=== PATIENT | female | born 1990 | race Caucasian/White ===

== ENCOUNTER 2020-01-06 08:56 | Inpatient (IN) ==
[2020-01-06] MEDS ORDERED: OXYTOCIN 30 UNITS/500 ML BAG IV PRN ×2 (09:23)
[2020-01-06] MEDS: LACTATED RINGER'S 1,000 ML IV PRN ×3 (10:06→19:53)
[2020-01-06 10:21] LABS: Hematocrit (blood only) 38.3 % (37-47); Hemoglobin 12.6 g/dL (12.0-16.0); Mean Corpuscular Hemoglobin 30.8 pg (25-34); Mean Corpuscular Hgb Conc 32.9 g/dL (32-36); Mean Corpuscular Volume 93.6 fL (80-100); Mean Platelet Volume 14.1 fL (7.4-10.4); Platelet Count 124 K/uL (130-400); Platelet Estimate Normal (Normal); RDW Coefficient of Variation 13.7 % (11.5-14.5); RDW Standard Deviation 46.9 fL (36.4-46.3); Red Blood Count 4.09 M/uL (4.2-5.4); White Blood Count 8.32 K/uL (4.8-10.8)
--- NOTE | 2020-01-06 11:04 | Labor Progress Brief Note ---
Date of Service January 06, 2020 Subjective IOL for cHTN. Delayed note due to other patient care. This patient was seen and examined at the time of her admission this morning. She was feeling FM, no VB, question of LOF vs leakage from hemphill balloon, and no painful contractions despite fairly active toco. Assessment & Plan (1) Chronic hypertension affecting : IOL due to cHTN. On labetalol, took this morning's dose, BP slightly higher on admission than is typical for her possibly due to excitement / anxiety; plan: will trend (and now at time of this delayed note does look much more typical for her). Admission and Anticipated Discharge Date Admission Date: January 06, 2020 Physical Exam Physical Exam: /hi/firm/post Intact membranes FHT Cat 1 [place] Q3min but not painful to the patient. Results & Data ([facility]) Vital Signs (Past 12 Hours) Vital Signs Temp Pulse Resp BP 01/06/20 10:52 82 147/95 H 01/06/20 10:35 85 137/97 01/06/20 10:30 18 01/06/20 10:20 90 134/94 01/06/20 10:06 90 144/92 H 01/06/20 10:00 18 01/06/20 09:35 89 140/100 01/06/20 09:30 18 01/06/20 09:11 97.5 F L 85 20 156/102 H 01/06/20 09:07 97.5 F L 85 20 156/102 H Coding Level of Care Code None Diagnoses Chronic hypertension affecting O10.919
--- NOTE | 2020-01-06 14:40 | Anesthesiology Consultation ---
Date of Service January 06, 2020 History Height/Weight Height: 5 ft 3 in Weight: 78.925 kg Allergies Allergy/AdvReac Type Severity Reaction Status Date / Time No Known Drug Allergies Allergy Verified 01/03/20 14:51 Medications Home Medications Medication Instructions Recorded Confirmed Last Taken labetalol 100 mg tablet 100 mg PO BID #180 tab 05/07/19 01/05/20 01/05/20 prenat.vits,shahida,ieu-xklw-ghdwk 1 tab PO DAILY 05/31/19 01/05/20 01/05/20 aspirin 81 mg chewable tablet 81 mg PO DAILY 08/06/19 01/05/20 01/05/20 Active Medications Generic Name Dose Route Start Last Admin Trade Name Freq PRN Reason Stop Dose Admin Lactated Ringer's 1,000 mls @ 125 mls/hr 01/06/20 09:23 01/06/20 10:06 Lr IV 01/08/20 09:22 125 mls/hr .Q8H PRN Administration L&D Protocol Protocol Oxytocin 30 units in 500 mls @ 9 mls/hr 01/06/20 09:23 01/06/20 14:22 Pitocin IV 01/08/20 09:22 0.54 units/hr .Q24H PRN 9 mls/hr Labor Induction/Augmentation Titration Protocol 0.54 UNITS/HR Past Medical History Medical History Atypical squamous cells of undetermined significance (ASCUS) on Papanicolaou smear of cervix Chronic hypertension affecting Constipation Encounter for anatomic survey Family history of melanoma History of dysplastic nevus Hx of varicella Hypertension IBS (irritable bowel syndrome) Supervision of normal intrauterine in primigravida Past Family History Family History Grandfather (Paternal) Myocardial infarction Grandfather (Maternal) Myocardial infarction Denies family history of Ovarian cancer Prostate cancer Breast cancer Colorectal cancer Past Surgical History Surgical History H/O oral surgery Social History Smoking Status: Never smoker Hx Alcohol Use: No Hx Substance Use: No Physical Exam Vital Signs Last Vital Signs Temp 36.8 C 01/06/20 12:00 Pulse 89 01/06/20 14:14 Resp 18 01/06/20 14:15 BP 132/94 01/06/20 14:14 Testing Laboratory Results 01/06/20 09:37 12/25 COVID negative
[2020-01-06] MEDS: LABETALOL HCL 100 MG TAB PO SCH (17:23)
--- NOTE | 2020-01-06 18:02 | Labor Progress Brief Note ---
Date of Service January 06, 2020 Subjective Tolerating contractions, uncomfortable but does not wish epidural yet. Assessment & Plan (1) Chronic hypertension affecting : Medically indicated IOL; continue to titrate pit to 200-250 MVU. Continue home oral labetalol dose. Admission and Anticipated Discharge Date Admission Date: January 06, 2020 Physical Exam Physical Exam: FHT Cat 1 [place] Q2-5 with some times of very regular pattern, other times very irregular / spaced apart. Pit @ 15 Cvx 5/50/-2 IUPC Placed after consent process done and patient/FOB agree to placement. No difficulty with passing catheter into uterine cavity, no resistance met. Clear fluid. Results & Data ([facility]) Vital Signs (Past 12 Hours) Vital Signs Temp Pulse Resp BP 01/06/20 17:14 81 139/94 01/06/20 16:14 76 139/95 01/06/20 15:15 76 141/94 H 01/06/20 14:30 18 01/06/20 14:15 18 01/06/20 14:14 89 132/94 01/06/20 13:14 73 144/91 H 01/06/20 13:13 18 01/06/20 12:01 83 141/94 H 01/06/20 12:00 98.2 F 18 01/06/20 11:30 18 01/06/20 11:00 18 01/06/20 10:52 82 147/95 H 01/06/20 10:35 85 137/97 01/06/20 10:30 18 01/06/20 10:20 90 134/94 01/06/20 10:06 90 144/92 H 01/06/20 10:00 18 01/06/20 09:35 89 140/100 01/06/20 09:30 18 01/06/20 09:11 97.5 F L 85 20 156/102 H 01/06/20 09:07 97.5 F L 85 20 156/102 H Coding Level of Care Code None Diagnoses Chronic hypertension affecting O10.919
[2020-01-06] MEDS ORDERED: fentaNYL citrate 100 MCG/2 ML VIAL ONE (19:18)
[2020-01-06] MEDS ORDERED: SODIUM CHLORIDE 0.9% INJ 10 ML VIAL ONE (19:18)
[2020-01-06] MEDS ORDERED: ePHEDrine sulfate 50 MG/ML AMP ONE (19:18)
[2020-01-06] MEDS ORDERED: BUPIVACAINE 0.25% 30 ML VIAL ONE (19:18)
[2020-01-06] MEDS ORDERED: fentaNYL 2MCG/ML ROPIVACAINE 1.25MG/ML 100 ML BAG EPI ONE (19:19)
[2020-01-06] MEDS ORDERED: ePHEDrine sulfate 50 MG/ML AMP IV PRN (20:04)
[2020-01-06] MEDS ORDERED: fentaNYL 2MCG/ML ROPIVACAINE 1.25MG/ML 100 ML BAG EPI PRN (20:04)
[2020-01-06] MEDS ORDERED: ONDANSETRON INJ 2 MG/ML 2 ML VIAL IV PRN (20:04)
[2020-01-06] MEDS ORDERED: NALOXONE HCL 0.4 MG/1 ML VIAL/CARP IV PRN (20:04)
--- NOTE | 2020-01-06 22:21 | Labor Progress Brief Note ---
Date of Service January 06, 2020 Subjective Comfortable with epidural Assessment & Plan (1) Chronic hypertension affecting : Medically indicated IOL. Pitocin at 17 with adequate MVU and cervical change occurring. Continue current management. Admission and Anticipated Discharge Date Admission Date: January 06, 2020 Physical Exam Physical Exam: /-1, big change in effacement and station. FHT Cat 1 [place] Q2 Pit @ 17 MVU adequate Results & Data ([facility]) Vital Signs (Past 12 Hours) Vital Signs Temp Pulse Resp BP Pulse Ox 01/06/20 22:18 80 129/83 96 01/06/20 22:13 86 95 01/06/20 22:08 88 96 01/06/20 22:03 80 139/88 96 01/06/20 22:00 18 01/06/20 21:58 84 96 01/06/20 21:53 87 97 01/06/20 21:48 99 H 96 01/06/20 21:47 85 136/90 01/06/20 21:43 89 96 01/06/20 21:38 83 97 01/06/20 21:33 99 H 136/83 94 01/06/20 21:31 106 H 90 01/06/20 21:30 98.2 F 18 01/06/20 21:28 88 98 01/06/20 21:23 84 97 01/06/20 21:22 71 94 01/06/20 21:19 69 121/68 01/06/20 21:18 70 95 01/06/20 21:13 70 95 01/06/20 21:08 71 96 01/06/20 21:03 70 95 01/06/20 21:02 69 130/80 01/06/20 21:00 18 01/06/20 20:58 73 96 01/06/20 20:53 68 95 01/06/20 20:48 68 128/77 96 01/06/20 20:46 74 94 01/06/20 20:43 78 97 01/06/20 20:38 83 97 01/06/20 20:33 79 97 01/06/20 20:30 73 137/82 01/06/20 20:29 85 94 01/06/20 20:28 86 96 01/06/20 20:24 75 135/88 01/06/20 20:23 73 97 01/06/20 20:19 71 131/85 01/06/20 20:18 77 97 01/06/20 20:15 74 18 135/81 01/06/20 20:14 75 130/82 01/06/20 20:13 75 18 97 01/06/20 20:11 18 01/06/20 20:09 71 18 142/83 H 01/06/20 20:08 75 97 01/06/20 20:07 74 18 136/75 01/06/20 20:05 76 18 133/80 01/06/20 20:03 72 136/78 96 01/06/20 20:01 88 142/93 H 01/06/20 19:59 88 132/88 01/06/20 19:58 81 96 01/06/20 19:53 89 97 01/06/20 19:48 91 H 97 01/06/20 19:43 79 98 01/06/20 19:38 79 98 01/06/20 19:33 77 97 01/06/20 19:28 81 97 01/06/20 19:23 83 96 01/06/20 19:14 98.2 F 73 18 142/94 H 01/06/20 19:07 98.2 F 18 01/06/20 18:30 98.8 F 18 01/06/20 18:14 80 144/94 H 01/06/20 17:14 81 139/94 01/06/20 16:14 76 139/95 01/06/20 15:15 76 141/94 H 01/06/20 14:30 18 01/06/20 14:15 18 01/06/20 14:14 89 132/94 01/06/20 13:14 73 144/91 H 01/06/20 13:13 18 01/06/20 12:01 83 141/94 H 01/06/20 12:00 98.2 F 18 01/06/20 11:30 18 01/06/20 11:00 18 01/06/20 10:52 82 147/95 H 01/06/20 10:35 85 137/97 01/06/20 10:30 18 Coding Level of Care Code None Diagnoses Chronic hypertension affecting O10.919
[2020-01-07] MEDS: LACTATED RINGER'S 1,000 ML IV PRN (03:36)
--- NOTE | 2020-01-07 06:33 | Delivery Summary ---
Vaginal Delivery Summary Date of Service January 07, 2020 Vaginal Delivery Summary DIAGNOSES: 1. [place] intrauterine at 38w3d gestation. 2. Induction of labor due to chronic hypertension managed on labetalol. 3. Group B Streptococcus Neg. PROCEDURE: Spontaneous vaginal delivery and repair of second degree laceration. SURGEON: Lin Argueta MD. SAFETY MANAGER: None. ESTIMATED BLOOD LOSS: 300 mL. COMPLICATIONS: None. PLACENTA: Spontaneous and intact with a 3-vessel cord. DISPOSITION: Stable to labor and delivery. DESCRIPTION: The patient pushed well and brought the head to in JUDY position. The 's head was allowed to deliver with contraction force and no further active pushing, with the perineum protected during this time. The shoulders delivered easily with a maternal pushing effort. There was a fairly tight nuchal cord which was just able to be reduced at the perineum. The right shoulder was anterior. The shoulders and body delivered without any difficulty, and the was placed on the maternal abdomen. It was vigorous and moving all extremities, and making respiratory efforts. The cord was doubly clamped by the MD and then cut by the FOB. The placenta delivered spontaneously and was noted to be intact and with a 3VC. The cervix, vagina and perineum were examined and were found to have a second degree laceration, which was repaired using vicryl suture including a crown stitch to rebuild the perineal body, and an over-layer of 3-0 vicryl to reapproximate the edges where they tore in a particularly ragged line along the R labium majus and perineum, in an attempt to maximize cosmesis upon healing. The fundus was firm and lochia minimal immediately after delivery. [facility] Vaginal Delivery Charge Vaginal Delivery Codes: 30382 global code for the antepartum, delivery, and post-
[2020-01-07] MEDS ORDERED: oxyCODONE/ACETAMINOPHEN 5mg/325mg TAB PO PRN (06:40)
[2020-01-07] MEDS ORDERED: ACETAMINOPHEN 325 MG TAB PO PRN (06:40)
[2020-01-07] MEDS ORDERED: HYDROCORTISONE ACETATE 25 MG SUPP PR PRN (06:40)
[2020-01-07] MEDS ORDERED: BENZOCAINE 20% AER SPR 82.5 GM CAN EXT PRN (06:40)
[2020-01-07] MEDS ORDERED: DIPHTHERIA/TETANUS/PERTUSSIS 0.5 ML SYR/VIAL IM ONE (06:40)
[2020-01-07] MEDS ORDERED: SUPERCREAM 0.870% 15 GM JAR EXT PRN (06:40)
--- NOTE | 2020-01-07 07:08 | Anesthesiology Progress Note ---
Date of Service January 07, 2020 Anesthesia Post Procedure Vital Signs Vital Signs: Temp Pulse Resp BP Pulse Ox 01/07/20 07:00 89 18 144/90 H 01/07/20 06:58 89 144/90 H 01/07/20 06:44 82 18 148/91 H 01/07/20 06:43 82 148/91 H 01/07/20 06:30 96 H 20 146/87 H 01/07/20 06:28 96 H 146/87 H 01/07/20 06:23 96 H 95 01/07/20 06:18 110 H 95 01/07/20 06:17 100 H 120/58 L 01/07/20 06:13 104 H 94 01/07/20 06:08 103 H 93 01/07/20 06:03 123 H 96 01/07/20 06:02 90 148/84 H 01/07/20 05:58 95 H 93 01/07/20 05:53 103 H 95 01/07/20 05:48 118 H 94 01/07/20 05:47 98 H 156/92 H 01/07/20 05:45 20 01/07/20 05:43 115 H 94 01/07/20 05:38 105 H 95 01/07/20 05:33 92 H 147/87 H 96 01/07/20 05:30 36.9 C 01/07/20 05:29 20 01/07/20 05:28 95 H 93 01/07/20 05:23 91 H 95 01/07/20 05:18 87 95 01/07/20 05:17 94 H 132/75 01/07/20 05:13 83 96 01/07/20 05:08 93 H 93 01/07/20 05:03 91 H 95 01/07/20 05:02 86 138/78 01/07/20 05:00 20 01/07/20 04:58 92 H 97 01/07/20 04:53 82 96 01/07/20 04:48 97 H 130/75 96 01/07/20 04:43 87 94 01/07/20 04:38 88 91 01/07/20 04:33 89 132/69 93 01/07/20 04:30 20 01/07/20 04:28 92 H 95 01/07/20 04:23 89 95 01/07/20 04:18 83 96 01/07/20 04:17 76 146/86 H 01/07/20 04:13 94 H 95 01/07/20 04:08 85 95 01/07/20 04:03 86 95 01/07/20 04:02 83 148/87 H 01/07/20 04:00 20 01/07/20 03:58 80 92 20 03:53 80 92 01/07/20 03:48 78 140/78 92 01/07/20 03:43 77 93 01/07/20 03:38 81 94 20 03:33 85 93 01/07/20 03:32 80 142/84 H 01/07/20 03:30 37.0 C 18 01/07/20 03:28 82 95 01/07/20 03:23 84 95 01/07/20 03:19 82 140/81 01/07/20 03:18 82 96 01/07/20 03:13 81 95 01/07/20 03:08 84 95 01/07/20 03:03 80 95 01/07/20 03:02 79 141/86 H 01/07/20 02:58 93 H 94 01/07/20 02:53 78 93 01/07/20 02:48 83 147/85 H 94 01/07/20 02:43 89 96 01/07/20 02:38 87 95 01/07/20 02:33 87 94 01/07/20 02:32 80 140/82 01/07/20 02:30 36.7 C 01/07/20 02:29 20 01/07/20 02:28 84 93 01/07/20 02:23 81 94 20 02:19 83 136/79 01/07/20 02:18 92 H 94 01/07/20 02:13 87 95 01/07/20 02:08 89 95 01/07/20 02:03 87 138/89 96 01/07/20 02:00 20 01/07/20 01:58 85 94 20 01:53 91 H 95 20 01:48 85 95 20 01:47 89 135/79 20 01:43 83 95 20 01:38 96 H 96 01/07/20 01:33 92 H 96 01/07/20 01:32 82 142/81 H 01/07/20 01:29 20 01/07/20 01:28 89 93 01/07/20 01:23 84 94 01/07/20 01:18 87 140/84 93 01/07/20 01:13 89 93 01/07/20 01:08 85 94 01/07/20 01:03 36.9 C 88 130/71 94 01/07/20 01:00 20 01/07/20 00:58 84 93 01/07/20 00:53 81 92 01/07/20 00:48 89 134/77 93 01/07/20 00:43 80 94 01/07/20 00:38 84 92 01/07/20 00:33 84 92 01/07/20 00:32 80 132/72 01/07/20 00:30 20 01/07/20 00:28 84 93 01/07/20 00:23 80 94 01/07/20 00:18 84 93 01/07/20 00:17 81 130/77 01/07/20 00:13 84 93 01/07/20 00:08 85 94 01/07/20 00:05 84 124/78 01/07/20 00:03 105 H 95 01/06/20 23:59 20 01/06/20 23:58 79 93 01/06/20 23:53 78 93 01/06/20 23:49 77 140/74 01/06/20 23:48 78 93 01/06/20 23:43 82 93 01/06/20 23:38 82 95 01/06/20 23:33 77 93 01/06/20 23:32 75 152/72 H 01/06/20 23:28 76 93 01/06/20 23:23 79 93 01/06/20 23:18 79 125/76 94 01/06/20 23:13 80 95 01/06/20 23:08 76 94 01/06/20 23:03 78 136/76 95 01/06/20 22:58 80 94 01/06/20 22:53 81 95 01/06/20 22:50 36.9 C 81 20 134/81 95 01/06/20 22:48 81 134/81 95 01/06/20 22:43 82 96 11/16/20 22:38 81 96 01/06/20 22:33 84 133/78 96 01/06/20 22:30 18 01/06/20 22:28 82 95 01/06/20 22:23 81 95 01/06/20 22:18 80 129/83 96 01/06/20 22:13 86 95 01/06/20 22:08 88 96 01/06/20 22:03 80 139/88 96 01/06/20 22:00 18 01/06/20 21:58 84 96 01/06/20 21:53 87 97 01/06/20 21:48 99 H 96 01/06/20 21:47 85 136/90 01/06/20 21:43 89 96 01/06/20 21:38 83 97 01/06/20 21:33 99 H 136/83 94 01/06/20 21:31 106 H 90 01/06/20 21:30 36.8 C 18 01/06/20 21:28 88 98 01/06/20 21:23 84 97 01/06/20 21:22 71 94 01/06/20 21:19 69 121/68 01/06/20 21:18 70 95 01/06/20 21:13 70 95 01/06/20 21:08 71 96 01/06/20 21:03 70 95 01/06/20 21:02 69 130/80 01/06/20 21:00 18 01/06/20 20:58 73 96 01/06/20 20:53 68 95 01/06/20 20:48 68 128/77 96 01/06/20 20:46 74 94 01/06/20 20:43 78 97 01/06/20 20:38 83 97 01/06/20 20:33 79 97 01/06/20 20:30 73 137/82 01/06/20 20:29 85 94 01/06/20 20:28 86 96 01/06/20 20:24 75 135/88 01/06/20 20:23 73 97 01/06/20 20:19 71 131/85 01/06/20 20:18 77 97 01/06/20 20:15 74 18 135/81 01/06/20 20:14 75 130/82 01/06/20 20:13 75 18 97 01/06/20 20:11 18 01/06/20 20:09 71 18 142/83 H 01/06/20 20:08 75 97 01/06/20 20:07 74 18 136/75 01/06/20 20:05 76 18 133/80 01/06/20 20:03 72 136/78 96 01/06/20 20:01 88 142/93 H 01/06/20 19:59 88 132/88 01/06/20 19:58 81 96 01/06/20 19:53 89 97 01/06/20 19:48 91 H 97 01/06/20 19:43 79 98 01/06/20 19:38 79 98 01/06/20 19:33 77 97 01/06/20 19:28 81 97 01/06/20 19:23 83 96 01/06/20 19:14 36.8 C 73 18 142/94 H 01/06/20 19:07 36.8 C 18 01/06/20 18:30 37.1 C 18 01/06/20 18:14 80 144/94 H 01/06/20 17:14 81 139/94 01/06/20 16:14 76 139/95 01/06/20 15:15 76 141/94 H 01/06/20 14:30 18 01/06/20 14:15 18 01/06/20 14:14 89 132/94 01/06/20 13:14 73 144/91 H 01/06/20 13:13 18 01/06/20 12:01 83 141/94 H 01/06/20 12:00 36.8 C 18 01/06/20 11:30 18 01/06/20 11:00 18 01/06/20 10:52 82 147/95 H 01/06/20 10:35 85 137/97 01/06/20 10:30 18 01/06/20 10:20 90 134/94 01/06/20 10:06 90 144/92 H 01/06/20 10:00 18 01/06/20 09:35 89 140/100 01/06/20 09:30 18 01/06/20 09:11 36.4 C L 85 20 156/102 H 01/06/20 09:07 36.4 C L 85 20 156/102 H Pain Intensity Back: Pain Intensity: 0 Transfer of Care Handoff Completed per policy Notes Mental Status: alert / awake / arousable and participated in evaluation Patient Amnestic to Procedure: Yes Nausea / Vomiting: adequately controlled Pain: adequately controlled Airway Patency, RR, SpO2: stable & adequate BP & HR: stable & adequate Hydration State: stable & adequate Anesthetic Complications: no major complications apparent and Pt Satisfied with anesthetic care
[2020-01-07] MEDS: IBUPROFEN 600 MG TAB PO PRN ×2 (08:26→19:54)
[2020-01-07] MEDS: LABETALOL HCL 100 MG TAB PO SCH ×2 (09:13→20:11)
[2020-01-07] MEDS: DOCUSATE SODIUM 100 MG CAP PO SCH ×2 (10:15→19:54)
[2020-01-07] MEDS: PRENATAL VITAMIN 1 TAB PO SCH (10:15)
[2020-01-08] MEDS: IBUPROFEN 600 MG TAB PO PRN ×3 (01:16→18:55)
--- NOTE | 2020-01-08 07:18 | Obstetrical Progress Note ---
Date of Service January 08, 2020 Assessment & Plan (1) exam: doing well, routine care. voiding well, will monitor and let us know if concerns Day #:: 1 Subjective Ambulation: ambulating normally Voiding: no voiding problems (did have straight cath last night but since voided spont and felt she emptied well) Diet Tolerance:: regular diet Lochia:: Small Feeding Type:: breast feeding no pain issues. doing well. Physical Exam Constitutional WD/WN, vitals as above Respiratory normal respiratory effort, lungs clear to auscultation Cardiovascular Rate/Rhythm: regular rate and regular rhythm Gastrointestinal (Abdomen) Inspection/Auscultation: abdomen normal to inspection Percussion/Palpation: abdomen soft Fundus firm 1cm down Musculoskeletal nt calves Neurologic grossly normal Psychiatric A+Ox3, euthymic affect Results & Data ([facility]) Vital Signs (Past 12 Hours) Vital Signs Temp Pulse Resp BP Pulse Ox 01/08/20 04:30 97.5 F L 86 16 138/91 97 01/07/20 22:50 97.5 F L 81 16 137/86 97 01/07/20 19:55 97.5 F L 98 H 18 138/88 96
[2020-01-08 07:23] LABS: Hematocrit (blood only) 31.9 % (37-47); Hemoglobin 10.6 g/dL (12.0-16.0); Mean Corpuscular Hemoglobin 30.8 pg (25-34); Mean Corpuscular Hgb Conc 33.2 g/dL (32-36); Mean Corpuscular Volume 92.7 fL (80-100); RDW Coefficient of Variation 13.6 % (11.5-14.5); Red Blood Count 3.44 M/uL (4.2-5.4); White Blood Count 9.96 K/uL (4.8-10.8)
[2020-01-08 07:34] LABS: Platelet Count 92 K/uL (130-400)
[2020-01-08] MEDS: DOCUSATE SODIUM 100 MG CAP PO SCH ×2 (08:33→21:22)
[2020-01-08] MEDS: PRENATAL VITAMIN 1 TAB PO SCH (08:33)
[2020-01-08] MEDS: LABETALOL HCL 100 MG TAB PO SCH ×2 (08:44→21:22)
[2020-01-09 06:05] LABS: Hematocrit (blood only) 32.3 % (37-47); Hemoglobin 10.6 g/dL (12.0-16.0)
--- NOTE | 2020-01-09 06:30 | Obstetrical Progress Note ---
Date of Service <Jc Villarreal MD - Last Filed: 01/09/20 06:29> January 09, 2020 Assessment & Plan <Jc Villarreal MD - Last Filed: 01/09/20 06:29> (1) exam: Vero is a 30 y/o female who is now PPD #1 following medically-indic ated IOL for cHTN with subsequent at 38-3/7 weeks - Feels well today. Eating well, voiding well, ambulating well. - Pain well controlled with ibuprofen 600mg Q4H PRN. - Routine PPD care -- continue regular OOB and ambulation - cHTN: BPs well controlled here -- throughout last night, 130/80. Continue home labetolol 100mg PO b.i.d. upon d/c - Anticipate d/c today - After discharge will have [address] Argueta (2) Chronic hypertension affecting : Subjective <Jc Villarreal MD - Last Filed: 01/09/20 06:29> Vero is a 30 y/o female who is now PPD #1 following medically-indicated IOL for cHTN with subsequent at 38-3/7 weeks. Reports feeling well overall this morning. Minimal abdominal cramping with pain well managed on analgesics. Voiding without difficulty. Tolerating meals well and able to ambulate some. Endorses passing gas but not yet bowel movements. Some persistent lochia with some improvement this morning. Breast feeding without difficulty BPs stable in the 130/80 range overnight. No QIU/changes in vision/CP/SOB/abdominal pain. Review of Systems Denies fever, chills, sweats Denies shortness of breath, difficulty breathing, chest pain, palpitations, chest pressure. Denies breast pain. Denies dysuria. Denies headache or changes in vision. Physical Exam <Jc Villarreal MD - Last Filed: 01/09/20 06:29> General: Alert, oriented. No acute distress. Cardiac: Regular rate and rhythm, no murmurs/rubs/gallops. Respiratory: Clear to auscultation bilaterally a/p, no wheezes/rales/rhonchi. No increased work of breathing. Symmetrical chest rise. No respiratory distress. Abdomen: Soft, nontender, nondistended. Bowel sounds present. Uterus: Uterine fundus firm, palpable 2 cm below umbilicus. Lower Extremities: No lower extremity edema or swelling. No deep calf pain. Elyse's negative bilaterally. Results & Data ([facility]) <Jc Villarreal MD - Last Filed: 01/09/20 06:29> Vital Signs (Past 12 Hours) Vital Signs Temp Pulse Resp BP Pulse Ox 01/09/20 00:25 36.7 C 73 18 132/83 97 01/08/20 21:20 90 138/87 01/08/20 19:40 36.7 C 90 18 138/87 97 <Letitia Cesar DO - Last Filed: 01/09/20 07:38> Co-Signing Physician Notes Resident Physician Supervision Note: I was present with Dr. Villarreal during the history and exam. I discussed the case with the resident and agree with the findings and plan as documented in the note. Any exceptions or clarifications are listed here: PPD#2 doing well. DC home today, instructions reviewed. Continue labetalol 100mg BID, f/u office 1w for recheck. Documented By: Letitia Cesar DO Resident Activity Tracking <Jc Villarreal MD - Last Filed: 01/09/20 06:29> Resident Involvement: Resident Care Provided Care Provided: Adult Hospital Medicine and OB Delivery
[2020-01-09] MEDS: PRENATAL VITAMIN 1 TAB PO SCH (07:44)
[2020-01-09] MEDS: DOCUSATE SODIUM 100 MG CAP PO SCH (07:44)
[2020-01-09] MEDS: LABETALOL HCL 100 MG TAB PO SCH (07:44)
== END 2020-01-09 12:30 | disposition home or self-care (01) | DRG 807 ==
LOC: 4S1 08:56 → 4N 01-07 10:00

== ENCOUNTER 2023-04-03 07:35 | Inpatient (IN) ==
[2023-04-03] MEDS ORDERED: LIDOCAINE 1% LOCAL 20 ML VIAL INFIL PRN (07:42)
--- NOTE | 2023-04-03 07:48 | History & Physical Report ---
Date of Service April 03, 2023 Assessment & Plan (1) Encounter for induction of labor: (2) Need for MMR vaccine: (3) Hypertension: Plan 33-year-old G2, P1 currently at 38 weeks gestational age here for induction Fetus: Category 1 tracing Labor: Will continue to monitor and augment if needed. GBS: Positive, treat in labor Epidural if requested Rubella equivocal, will need MMR Vitals: Within normal limits Admission and Anticipated Discharge Date Admission Date: April 03, 2023 History of Present Illness Primary Care Provider: Diana Valentin MD 33 y/o female at 39 weeks of gestation. Here for induction. Complications with the include CHTN on labetalol. Has been attending OB appointments regularly. Taking vitamin and labetalol. GBS+. Rubella equivocal. Contractions: every 10-15 min Fluid or blood loss: none movement: active Labs Lab Results OB Labs: Blood Type O Positive 09/13/22 Antibody Screen NEGATIVE 09/13/22 Hemoglobin 11.9 g/dl (12.0-16.0) L 01/26/23 Hematocrit 36.5 % (37.0-47.0) L 01/26/23 Mean Corpuscular Volume 90.0 fL (80.0-100.0) 09/13/22 Platelet Count 221 K/uL (130-400) 09/13/22 Rubella IgG Antibody Equivocal (Immune) L 09/13/22 Rapid Plasma Reagin Nonreactive (Nonreactive) 09/13/22 Hepatitis B Surface Antigen Neg (Neg) 06/11/19 Hepatitis B Surface Antigen. NON-REACTIVE (NON-REACTIVE) 09/13/22 Hepatitis C Antibody (EIA) NON-REACTIVE (NON-REACTIVE) 09/13/22 HIV (1&2) Ab and P24 Ag, 4th Gener Neg (Neg) 06/11/19 HIV (1&2) Ag and Ab Confirmation NON-REACTIVE (NON-REACTIVE) 09/13/22 Glucose 1 Hour 50 gm Load 120 mg/dl (70-130) 01/26/23 OB Optional Labs: Chlamydia trachomatis RNA Not Detected (NotDetected) 09/13/22 Neisseria gonorrhoeae RNA Not Detected (NotDetected) 09/13/22 Thyroid Stimulating Hormone (TSH) 2.055 uIu/ml (0.300-4.500) 06/24/22 Labs Reviewed: Declines genetics--mln Allergies Allergy/AdvReac Type Severity Reaction Status Date / Time No Known Drug Allergies Allergy Verified 03/31/23 15:22 Home Medications Medication Instructions Recorded Confirmed Type prenat.vits,shahida,akb-ddxg-siits 1 tab PO DAILY 05/31/19 04/03/23 History cholecalciferol (vitamin D3) 50 50 mcg PO DAILY #90 caps 03/14/22 04/03/23 Rx mcg (2,000 unit) capsule labetalol 100 mg tablet 100 mg PO BID #180 tabs 11/08/22 04/03/23 Rx aspirin 81 mg chewable tablet 81 mg PO DAILY 04/02/23 04/03/23 History Patient History Medical History (Updated 04/03/23 @ 08:14 by Shabbir Bhardwaj MD) Anemia Supervision of high risk , antepartum Atypical squamous cells of undetermined significance (ASCUS) on Papanicolaou smear of cervix Hx of varicella Family history of melanoma History of dysplastic nevus Constipation IBS (irritable bowel syndrome) Surgical History H/O oral surgery Family History Grandfather (Paternal) Myocardial infarction Grandfather (Maternal) Myocardial infarction Denies family history of Ovarian cancer Prostate cancer Breast cancer Colorectal cancer Social History (Updated 09/07/22 @ 15:09 by Dania Cunningham) Smoking Status: Never smoker Second Hand Exposure: No; Do You Dip or Chew Tobacco: No; Hx Alcohol Use: No Hx Substance Use: No Preferred Language: Czech Communication Ability: Effective Visual Impairment: No Limitations Hearing Ability: Normal Clip On Sunglasses Inspector Required: No Beliefs That Will Affect Care: None marital status: marital status details: Justin Dumont ([phone] Current Living Situation: Family Current Living Situation Comment: Lives at home with and 3 year old daughter Mo. 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 Skin: warm, dry, intact HEENT: NC/AT, anicteric sclera, conjunctiva without injection, moist mucus membranes Heart: +S1/S2, regular, no m/r/g Lungs: equal air entry bilaterally, no rales/rhonchi/wheezes Abd: +BS, soft, NT/ND, gravid uterus Cervical:, uterus mod. anterior Ext: warm, no clubbing/cyanosis or edema Neuro: nonfocal, patient AA&O x 4, speech intact, no facial droop, moving all extremities on command. Results & Data Vital Signs (Past 12 Hours) Vital Signs Pulse BP 04/03/23 07:45 97 H 150/89 H Supervising Physician Co-Signing Physician Notes Resident Physician Supervision Note: I interviewed and examined the patient. Discussed with Dr. Bhardwaj and agree with findings and plan as documented in the note. Any exceptions or clarifications are listed here: 33 yo at 38 3/7 wga presents for IOL chTN on meds. +FM; denies ctx, LOF, VB. PNI: chtn on albetalol 100mg po bid, GBS+, rub equiv. SVE 1/50/-2, 35cc hemphill placed and pt toelrated well. Will start pit. GBS+, pcn started. Epidural prn Documented By: Jayleen Nathan MD Resident Activity Tracking Resident Involvement: Resident Care Provided Care Provided: OB Delivery
[2023-04-03 08:26] LABS: Hematocrit (blood only) 36.3 % (37.0-47.0); Mean Corpuscular Hemoglobin 30.5 pg (25.0-34.0); Mean Corpuscular Hgb Conc 33.1 g/dL (32.0-36.0); Mean Corpuscular Volume 92.1 fL (80.0-100.0); Mean Platelet Volume 13.1 fL (9.4-12.4); Platelet Count 117 K/uL (130-400); RDW Coefficient of Variation 13.1 % (11.5-14.5); Red Blood Count 3.94 M/uL (4.20-5.40); White Blood Count 7.11 K/ul (4.8-10.8)
[2023-04-03] MEDS: LACTATED RINGER'S 1,000 ML IV PRN (09:08)
[2023-04-03] MEDS: PENICILLIN GK 6 MU in DEXTROSE 5% 250 ML IV STA (09:10)
[2023-04-03] MEDS: OXYTOCIN 30 UNITS/NSS 30 UNITS/500 ML BAG IV PRN (09:38)
[2023-04-03] MEDS: PENICILLIN GK 3 MU in DEXTROSE 5% 100 ML IV PRN (15:05)
--- NOTE | 2023-04-03 16:52 | Labor Progress Brief Note ---
Date of Service April 03, 2023 Subjective hemphill bulb out Assessment & Plan (1) Chronic hypertension affecting : (2) Encounter for induction of labor: Plan 33 yo at 38 3/7 wga presents for IOL cHTN on meds VSS Fetus cat 1 Labor - pit at 10, now s/p arom cHTN - labetalol 100mg po bid ordered GBS+, pcn ordered epidural prn Admission and Anticipated Discharge Date Admission Date: April 03, 2023 Physical Exam Genitourinary: Manual OB Exam: + cervical dilation 4 cm, + cervical effacement 50%, + station -2 and + amniotic fluid (arom clear) OB Exam Monitor Tracing: + external FHT monitor used, + external uterine monitor used (q4) and + category I (135/mod/+accel/-decel) Results & Data Vital Signs (Past 12 Hours) Vital Signs Temp Pulse Resp BP 04/03/23 16:48 82 04/03/23 16:48 161/83 H 04/03/23 15:47 85 04/03/23 15:47 142/78 H 04/03/23 14:43 81 04/03/23 14:43 136/76 04/03/23 13:43 86 04/03/23 13:43 136/84 04/03/23 12:43 86 04/03/23 12:43 128/83 04/03/23 11:43 84 04/03/23 11:43 134/81 04/03/23 11:10 16 04/03/23 11:10 98.6 F 16 04/03/23 10:43 79 04/03/23 10:43 146/80 H 04/03/23 09:42 82 04/03/23 09:42 137/87 04/03/23 08:35 96 H 04/03/23 08:35 131/86 04/03/23 08:20 95 H 04/03/23 08:20 143/85 H 04/03/23 08:05 91 H 04/03/23 08:05 141/85 H 04/03/23 07:45 98.2 F 97 H 18 150/89 H Coding Level of Care Code None Diagnoses Chronic hypertension affecting O10.919 Encounter for induction of labor Z34.90
[2023-04-03] MEDS: LABETALOL HCL 100 MG TAB PO SCH (17:56)
--- NOTE | 2023-04-03 19:51 | Labor Progress Brief Note ---
Date of Service April 03, 2023 Subjective ctx worsening Assessment & Plan (1) Chronic hypertension affecting : (2) Encounter for induction of labor: Plan 33 yo at 38 3/7 wga presents for IOL cHTN on meds VSS Fetus cat 1 Labor - pit at 16, slight change. continue induction cHTN - labetalol 100mg po bid ordered GBS+, pcn ordered epidural prn Admission and Anticipated Discharge Date Admission Date: April 03, 2023 Physical Exam Genitourinary: Manual OB Exam: + cervical dilation 5 cm, + cervical effacement 60% and + station -2 OB Exam Monitor Tracing: + external FHT monitor used, + external uterine monitor used (q2-4) and + category I (135/mod/+accel/-decel) Results & Data Vital Signs (Past 12 Hours) Vital Signs Temp Pulse Resp BP 04/03/23 19:44 88 04/03/23 19:44 135/83 04/03/23 19:15 87 04/03/23 19:15 140/90 04/03/23 18:20 84 04/03/23 18:20 138/91 04/03/23 18:04 91 H 04/03/23 18:04 128/91 04/03/23 17:48 96 H 04/03/23 17:48 138/95 04/03/23 17:33 88 04/03/23 17:33 140/85 04/03/23 17:19 83 04/03/23 17:19 145/88 H 04/03/23 17:04 81 04/03/23 17:04 158/91 H 04/03/23 16:48 82 04/03/23 16:48 161/83 H 04/03/23 15:47 85 04/03/23 15:47 142/78 H 04/03/23 14:43 81 04/03/23 14:43 136/76 04/03/23 13:43 86 04/03/23 13:43 136/84 04/03/23 12:43 86 04/03/23 12:43 128/83 04/03/23 11:43 84 04/03/23 11:43 134/81 04/03/23 11:10 16 04/03/23 11:10 98.6 F 16 04/03/23 10:43 79 04/03/23 10:43 146/80 H 04/03/23 09:42 82 04/03/23 09:42 137/87 04/03/23 08:35 96 H 04/03/23 08:35 131/86 04/03/23 08:20 95 H 04/03/23 08:20 143/85 H 04/03/23 08:05 91 H 04/03/23 08:05 141/85 H Coding Level of Care Code None Diagnoses Chronic hypertension affecting O10.919 Encounter for induction of labor Z34.90
--- NOTE | 2023-04-03 20:17 | Anesthesiology Consultation ---
Date of Service April 03, 2023 Assessment & Plan ASA ASA2 Proposed Anesthesia Anesthesia Type: Labor Epidural Risk / Benefits Reviewed With: PT / POA / Parent / Guardian, Accepts Plan and Informed Consent Obtained History Height/Weight Height: 5 ft 3 in Weight: 77.111 kg Allergies Allergy/AdvReac Type Severity Reaction Status Date / Time No Known Drug Allergies Allergy Verified 03/31/23 15:22 Medications Home Medications Medication Instructions Recorded Confirmed Last Taken prenat.vits,shahida,wwy-wqzg-uitvu 1 tab PO DAILY 05/31/19 04/03/23 04/02/23 cholecalciferol (vitamin D3) 50 50 mcg PO DAILY #90 caps 03/14/22 04/03/23 04/02/23 mcg (2,000 unit) capsule labetalol 100 mg tablet 100 mg PO BID #180 tabs 11/08/22 04/03/23 04/03/23 05:30 aspirin 81 mg chewable tablet 81 mg PO DAILY 04/02/23 04/03/23 04/03/23 Active Medications Generic Name Dose Route Start Last Admin Trade Name Freq PRN Reason Stop Dose Admin Oxytocin 30 units in 500 mls @ 16 mls/hr 04/03/23 07:42 04/03/23 19:36 Pitocin 30 Units/Nss IV 04/05/23 07:41 0.96 units/hr .Q24H PRN 16 mls/hr Labor Induction/Augmentation Titration Protocol 0.96 UNITS/HR Lactated Ringer's 1,000 mls @ 125 mls/hr 04/03/23 07:42 04/03/23 20:30 Lr IV 04/05/23 07:41 Infused .Q8H PRN Infusion L&D Protocol Protocol Penicillin G Potassium 3 mu/ 106 mls @ 100 mls/hr 04/03/23 10:43 04/03/23 19:13 Dextrose IV 04/13/23 10:42 100 mls/hr Q4H PRN Administration GBS(+) Until Delivery Labetalol HCl 100 mg 04/03/23 16:50 04/03/23 17:56 Labetalol Hcl 100 Mg Tab PO 05/03/23 16:49 100 mg Q12 LEONARDO Administration Past Medical History Medical History (Updated 04/03/23 @ 08:14 by Shabbir Bhardwaj MD) Anemia Supervision of high risk , antepartum Atypical squamous cells of undetermined significance (ASCUS) on Papanicolaou smear of cervix Hx of varicella Family history of melanoma History of dysplastic nevus Constipation IBS (irritable bowel syndrome) Exercise / Class Metabolic Activity II 4-5 Yardwork/Stairs/Walk up hill Past Family History Family History Grandfather (Paternal) Myocardial infarction Grandfather (Maternal) Myocardial infarction Denies family history of Ovarian cancer Prostate cancer Breast cancer Colorectal cancer Past Surgical History Surgical History H/O oral surgery Past Anesthesia History No Hx of Anesthesia Complications and No Family Hx of Anesthesia Complications History of PONV No Hx of PONV and No Hx of Motion Sickness Social History Smoking Status: Never smoker Do You Dip or Chew Tobacco: No Hx Alcohol Use: No Hx Substance Use: No Review of Systems denies fever/cough/ colds/ chest pain/ SOB/ NOA denies NOA Physical Exam Vital Signs Last Vital Signs Temp 37.0 C 04/03/23 11:10 Pulse 80 04/03/23 20:48 Resp 16 04/03/23 11:10 BP 133/86 04/03/23 20:48 Pulse Ox 97 04/03/23 20:48 ENMT Mouth: no TMJ abnormality and no dentition abnormality Thyromental Distance: > or= 3.5 Finger Breadths Mallampati Class: II Neck neck extension not limited Respiratory normal respiratory effort; no respiratory distress Auscultation: lungs clear to auscultation bilaterally Cardiovascular Rate/Rhythm: regular rate and regular rhythm Neurologic moves all extremities Psychiatric Orientation: alert and oriented x 3 Testing Laboratory Results 04/03/23 08:02
[2023-04-03] MEDS ORDERED: NALOXONE HCL 0.4 MG/1 ML VIAL/CARP IV PRN (20:18)
[2023-04-03] MEDS ORDERED: SODIUM CHLORIDE 0.9% PF INJ 10 ML VIAL EPI STA (20:18)
[2023-04-03] MEDS ORDERED: ONDANSETRON INJ 2 MG/ML 2 ML VIAL IV PRN (20:18)
[2023-04-03] MEDS ORDERED: ePHEDrine sulfate 50 MG/ML AMP IV PRN (20:18)
[2023-04-03] MEDS ORDERED: SODIUM CHLORIDE 0.9% PF INJ 10 ML VIAL EPI PRN (20:18)
[2023-04-03] MEDS ORDERED: fentaNYL citrate PF 100 MCG/2 ML VIAL EPI STA (20:18)
[2023-04-03] MEDS ORDERED: NALOXONE HCL 1 MG in SODIUM CHLORIDE 0.9% 1,000 ML IV PRN (20:18)
[2023-04-03] MEDS ORDERED: fentANYL 2 MCG/ML BUPIVacaine 0.125%-NSS 100ML BAG EPI PRN (20:18)
[2023-04-03] MEDS ORDERED: LIDOCAINE 2% MPF LOCAL 5 ML VIAL EPI PRN (20:18)
[2023-04-03] MEDS ORDERED: ROPIVACAINE 0.5% PF 5 MG/ML 20 ML VIAL EPI PRN (20:18)
[2023-04-03] MEDS ORDERED: BUPIVACAINE 0.25% PF 30 ML VIAL EPI PRN (20:18)
[2023-04-03] MEDS ORDERED: diphenhydrAMINE 50 MG/ML VIAL IV PRN (20:18)
[2023-04-03] MEDS ORDERED: NALBUPHINE HCL 5 MG in SYRINGE 0 ML IV PRN (20:18)
[2023-04-03] MEDS ORDERED: BUPIVACAINE 0.25% PF 30 ML VIAL EPI STA (20:18)
[2023-04-03] MEDS ORDERED: fentaNYL citrate PF 100 MCG/2 ML VIAL EPI PRN (20:18)
[2023-04-03] MEDS ORDERED: LIDOCAINE 2%/EPINEPHRINE 1:200,000 20 ML PF EPI STA (20:18)
[2023-04-03] MEDS: fentaNYL citrate PF 100 MCG/2 ML VIAL ONE (20:46)
[2023-04-03] MEDS: LIDOCAINE 2%/EPINEPHRINE 1:200,000 20 ML PF ONE (20:46)
[2023-04-03] MEDS: BUPIVACAINE 0.25% PF 30 ML VIAL ONE (20:46)
[2023-04-03] MEDS: fentANYL 2 MCG/ML BUPIVacaine 0.125%-NSS 100ML BAG ONE (20:47)
[2023-04-03] MEDS: SODIUM CHLORIDE 0.9% PF INJ 10 ML VIAL ONE (21:28)
[2023-04-03] MEDS: ePHEDrine sulfate 50 MG/ML AMP ONE (21:28)
--- NOTE | 2023-04-03 23:43 | Labor Progress Brief Note ---
Date of Service April 03, 2023 Subjective comfortable w/ epidural Assessment & Plan (1) Chronic hypertension affecting : (2) Encounter for induction of labor: Plan 33 yo at 38 3/7 wga presents for IOL cHTN on meds VSS Fetus cat 1 Labor - pit at 20, IUPC placed. Will increase pit max to 24. Progress noted on exam cHTN - labetalol 100mg po bid ordered GBS+, pcn ordered epidural in place Admission and Anticipated Discharge Date Admission Date: April 03, 2023 Physical Exam Genitourinary: Manual OB Exam: + cervical dilation (5.5), + cervical effacement 70% and + station -2 OB Exam Monitor Tracing: + external FHT monitor used, + intra-uterine pressure catheter used (q3) and + category I (135/mod/+accel/-decel) Results & Data Vital Signs (Past 12 Hours) Vital Signs Temp Pulse Resp BP Pulse Ox 04/03/23 23:39 85 04/03/23 23:39 115/73 04/03/23 23:38 97 04/03/23 23:38 85 04/03/23 23:33 100 04/03/23 23:33 93 H 04/03/23 23:28 97 04/03/23 23:28 85 04/03/23 23:23 100 04/03/23 23:23 85 04/03/23 23:23 129/71 04/03/23 23:18 97 04/03/23 23:18 82 04/03/23 23:13 99 04/03/23 23:13 95 H 04/03/23 23:09 90 04/03/23 23:09 120/68 04/03/23 23:08 98 04/03/23 23:08 90 04/03/23 23:06 92 04/03/23 23:06 93 H 04/03/23 23:03 99 04/03/23 23:03 84 04/03/23 23:00 18 04/03/23 23:00 97.9 F 18 04/03/23 22:58 99 04/03/23 22:58 104 H 04/03/23 22:54 95 H 04/03/23 22:54 141/83 H 04/03/23 22:53 100 04/03/23 22:53 98 H 04/03/23 22:48 98 04/03/23 22:48 83 04/03/23 22:43 98 04/03/23 22:43 91 H 04/03/23 22:39 91 H 04/03/23 22:39 136/86 04/03/23 22:38 99 04/03/23 22:38 100 H 04/03/23 22:33 97 04/03/23 22:33 92 H 04/03/23 22:28 97 04/03/23 22:28 92 H 04/03/23 22:23 99 04/03/23 22:23 88 04/03/23 22:23 92 H 04/03/23 22:23 141/81 H 04/03/23 22:18 98 04/03/23 22:18 81 04/03/23 22:13 97 04/03/23 22:13 83 04/03/23 22:08 98 04/03/23 22:08 83 04/03/23 22:08 138/84 04/03/23 22:03 96 04/03/23 22:03 85 04/03/23 21:58 96 04/03/23 21:58 82 04/03/23 21:53 98 04/03/23 21:53 83 04/03/23 21:53 88 04/03/23 21:53 140/84 04/03/23 21:48 96 04/03/23 21:48 83 04/03/23 21:43 97 04/03/23 21:43 81 04/03/23 21:38 98 04/03/23 21:38 86 04/03/23 21:38 143/87 H 04/03/23 21:33 97 04/03/23 21:33 88 04/03/23 21:28 96 04/03/23 21:28 80 04/03/23 21:23 97 04/03/23 21:23 89 04/03/23 21:18 99 04/03/23 21:18 95 H 04/03/23 21:18 85 04/03/23 21:18 140/66 04/03/23 21:15 83 04/03/23 21:15 145/58 H 04/03/23 21:13 96 04/03/23 21:13 84 04/03/23 21:12 86 04/03/23 21:12 147/66 H 04/03/23 21:09 82 04/03/23 21:09 139/69 04/03/23 21:08 97 04/03/23 21:08 84 04/03/23 21:05 86 04/03/23 21:05 140/71 04/03/23 21:03 97 04/03/23 21:03 86 04/03/23 21:02 86 04/03/23 21:02 139/72 04/03/23 21:01 18 04/03/23 21:01 18 04/03/23 21:00 87 04/03/23 21:00 142/66 H 04/03/23 20:58 97 04/03/23 20:58 83 04/03/23 20:57 81 04/03/23 20:57 138/70 04/03/23 20:56 18 04/03/23 20:56 18 04/03/23 20:54 86 04/03/23 20:54 137/66 04/03/23 20:53 97 04/03/23 20:53 84 04/03/23 20:53 18 04/03/23 20:53 98.6 F 18 04/03/23 20:52 91 H 04/03/23 20:52 141/70 H 04/03/23 20:51 18 04/03/23 20:51 18 04/03/23 20:48 97 04/03/23 20:48 80 04/03/23 20:48 87 04/03/23 20:48 133/86 04/03/23 20:45 18 04/03/23 20:45 18 04/03/23 20:45 80 04/03/23 20:45 147/92 H 04/03/23 20:43 98 04/03/23 20:43 78 04/03/23 20:42 81 04/03/23 20:42 140/94 04/03/23 20:38 97 04/03/23 20:38 90 04/03/23 20:33 96 04/03/23 20:33 86 04/03/23 20:28 99 04/03/23 20:28 99 H 04/03/23 20:23 98 04/03/23 20:23 89 04/03/23 20:18 100 04/03/23 20:18 87 02/12/24 19:44 88 04/03/23 19:44 135/83 04/03/23 19:15 87 04/03/23 19:15 140/90 04/03/23 18:20 84 04/03/23 18:20 138/91 04/03/23 18:04 91 H 04/03/23 18:04 128/91 04/03/23 17:48 96 H 04/03/23 17:48 138/95 04/03/23 17:33 88 04/03/23 17:33 140/85 04/03/23 17:19 83 04/03/23 17:19 145/88 H 04/03/23 17:04 81 04/03/23 17:04 158/91 H 04/03/23 16:48 82 04/03/23 16:48 161/83 H 04/03/23 15:47 85 04/03/23 15:47 142/78 H 04/03/23 14:43 81 04/03/23 14:43 136/76 04/03/23 13:43 86 04/03/23 13:43 136/84 04/03/23 12:43 86 04/03/23 12:43 128/83 04/03/23 11:43 84 04/03/23 11:43 134/81 Coding Level of Care Code None Diagnoses Chronic hypertension affecting O10.919 Encounter for induction of labor Z34.90
--- NOTE | 2023-04-04 02:14 | Delivery Summary ---
Vaginal Delivery Summary Date of Service April 04, 2023 Vaginal Delivery Summary and 2nd Degree LAC PREOPERATIVE DIAGNOSIS: 1. Single intrauterine at 38 47 wga 2. Chronic hypertension on medication 3. GBS+ POSTOPERATIVE DIAGNOSIS: 1. Single intrauterine at 38 47 wga 2. Chronic hypertension on medication 3. GBS+ 4. Delivered PROCEDURE: 1. Normal spontaneous vaginal delivery. SURGEON: Jayleen Nathan MD ANESTHESIA: Epidural. ESTIMATED BLOOD LOSS: 300 mL FLUIDS: Continuous LR. URINE OUTPUT: None. COMPLICATIONS: None. CONDITION: Stable. INDICATIONS: 33 yo at 38 4/7 wga presented for IOL due to chronic hypertension on medication. Induction was begun with hemphill bulb and pitocin. Penicillin was started for GBS+ status. Following hemphill bulb expulsion, she underwent arom. She received an epidural for pain control. IUPC was placed to guide pitocin after 20 mus and she then progressed to complete and desired to push. FINDINGS: A viable female infant, weight pending with Apgars of 8 and 9 at 1 and 5 minutes respectively. SPECIMEN: Cord blood OPERATIVE REPORT: The patient progressed to 10 cm, 100% effaced and +2 station, pushed over intact perineum with anesthesia to deliver a viable female , weight and Apgars as above. Head of delivered in JUDY position. No nuchal cord was present. Body and shoulders were delivered without difficulty. was delivered to maternal abdomen and nursing staff. Delayed cord clamping was performed for 60 seconds. Cord was clamped and cut. Cord blood was obtained. Placenta delivered spontaneously intact with 3-vessel cord. IV oxytocin and fundal massage were given for excellent hemostasis. Vagina, cervix, perineum, and placenta were inspected. A second degree laceration was noted and repaired using 3-0 vicryl, there was excellent hemostasis. Sponge and needle counts correct x2. No sponges were left behind. Mother and stable in immediate period. [facility] Vaginal Delivery Charge Vaginal Delivery Codes: 41743 global code for the antepartum, delivery, and post- Delivery Type Details: and 2nd Degree LAC
[2023-04-04] MEDS ORDERED: bisacodyL 10 MG SUPP PR PRN (02:17)
[2023-04-04] MEDS ORDERED: OXYTOCIN 30 UNITS/NSS 30 UNITS/500 ML BAG IV PRN (02:17)
[2023-04-04] MEDS ORDERED: HYDROCORTISONE ACETATE 25 MG SUPP PR PRN (02:17)
[2023-04-04] MEDS: OXYTOCIN 30 UNITS/NSS 30 UNITS/500 ML BAG IV PRN (02:26)
[2023-04-04] MEDS: DIPHTHER/TETAN/PERTUS Vaccine (Tdap, Adol/Adult) 0.5mL IM ONE (05:02)
--- NOTE | 2023-04-04 05:21 | Anesthesia Procedure Note ---
Date of Service April 04, 2023 Anesthesia Post Epidural Note Vital Signs Vital Signs: Temp Pulse Resp BP Pulse Ox 37.1 C 88 16 139/58 L 98 04/04/23 01:10 04/04/23 04:21 04/04/23 04:21 04/04/23 04:21 04/04/23 02:08 Notes Mental Status: alert / awake / arousable and participated in evaluation Nausea / Vomiting: adequately controlled Pain: adequately controlled Airway Patency, RR, SpO2: stable & adequate BP & HR: stable & adequate Hydration State: stable & adequate Neuraxial Anesthesia: was administered and sensory block resolved Anesthetic Complications: no major complications apparent and Pt Satisfied with anesthetic care Epidural: Removed without complications and With tip intact
--- NOTE | 2023-04-04 06:20 | Obstetrical Progress Note ---
Date of Service April 04, 2023 Assessment & Plan Admission and Anticipated Discharge Date Admission Date: April 03, 2023 Subjective 33 yo post- day 1 s/p Ambulation: ambulating normally Voiding: no voiding problems Passing Gas:: Yes Diet Tolerance:: regular diet Lochia:: Small Feeding Type:: bottle feeding Current Pain Level: Resting comfortably this AM in NAD. Denies QIU, CP, SOB, N/V/D, LE pain/swelling. Review of Systems Review of Systems: All systems reviewed & are unremarkable except as noted in HPI & below Physical Exam Physical Exam: General: patient resting comfortably, NAD, non-toxic in appearance, AA&O x 4, answers questions appropriately. Skin: warm, dry, intact HEENT: NC/AT, anicteric sclera, conjunctiva without injection, moist mucus membranes. Heart: +S1/S2, regular, no m/r/g Lungs: equal air entry bilaterally, no rales/rhonchi/wheezes Abd: +BS, soft, NT/ND, uterine fundus firm at umbilicus Ext: warm, no clubbing/cyanosis or edema, Elyse's neg. Neuro: nonfocal, patient AA&O x 4, speech intact, no facial droop, moving all extremities on command. Results & Data Vital Signs (Past 12 Hours) Vital Signs Temp Pulse Pulse Resp BP BP Pulse Ox 04/04/23 04:56 36.7 C 89 16 136/84 96 04/04/23 04:21 16 04/04/23 04:21 88 139/58 L 04/04/23 04:07 16 04/04/23 04:06 89 149/67 H 04/04/23 03:51 88 136/66 04/04/23 03:37 16 04/04/23 03:36 89 145/73 H 04/04/23 03:21 88 128/83 04/04/23 03:06 16 04/04/23 03:06 88 139/66 04/04/23 02:51 16 04/04/23 02:51 90 135/66 04/04/23 02:37 18 04/04/23 02:36 89 137/66 04/04/23 02:21 18 04/04/23 02:21 92 H 143/65 H 04/04/23 02:08 105 H 98 04/04/23 02:07 18 04/04/23 02:07 101 H 144/71 H 04/04/23 02:03 105 H 97 04/04/23 01:58 102 H 97 04/04/23 01:54 119 H 94 04/04/23 01:53 109 H 150/86 H 97 04/04/23 01:48 111 H 98 04/04/23 01:43 93 H 97 04/04/23 01:39 97 H 156/89 H 04/04/23 01:38 95 H 97 04/04/23 01:33 92 H 98 04/04/23 01:28 97 H 99 04/04/23 01:23 90 147/79 H 98 04/04/23 01:18 92 H 96 04/04/23 01:13 93 H 99 04/04/23 01:10 18 04/04/23 01:10 37.1 C 18 04/04/23 01:08 98 04/04/23 01:08 93 H 04/04/23 01:08 93 H 138/81 04/04/23 01:03 88 98 04/04/23 00:58 88 98 04/04/23 00:54 96 H 140/90 04/04/23 00:53 93 H 98 04/04/23 00:48 100 H 99 04/04/23 00:43 94 H 99 04/04/23 00:40 89 150/84 H 04/04/23 00:38 93 H 98 04/04/23 00:33 106 H 98 04/04/23 00:28 82 96 04/04/23 00:24 88 136/67 04/04/23 00:23 88 96 04/04/23 00:18 87 95 04/04/23 00:13 81 96 04/04/23 00:08 83 129/69 96 04/04/23 00:03 84 96 04/03/23 23:58 95 04/03/23 23:58 87 04/03/23 23:53 98 04/03/23 23:53 83 04/03/23 23:53 83 04/03/23 23:53 128/77 04/03/23 23:48 96 04/03/23 23:48 91 H 04/03/23 23:43 98 04/03/23 23:43 94 H 04/03/23 23:39 85 04/03/23 23:39 115/73 04/03/23 23:38 97 04/03/23 23:38 85 04/03/23 23:33 100 04/03/23 23:33 93 H 04/03/23 23:28 97 04/03/23 23:28 85 04/03/23 23:23 100 04/03/23 23:23 85 04/03/23 23:23 129/71 04/03/23 23:18 97 04/03/23 23:18 82 04/03/23 23:13 99 04/03/23 23:13 95 H 04/03/23 23:09 90 04/03/23 23:09 120/68 04/03/23 23:08 98 04/03/23 23:08 90 04/03/23 23:06 92 04/03/23 23:06 93 H 04/03/23 23:03 99 04/03/23 23:03 84 04/03/23 23:00 18 04/03/23 23:00 36.6 C 18 04/03/23 22:58 99 04/03/23 22:58 104 H 04/03/23 22:54 95 H 04/03/23 22:54 141/83 H 04/03/23 22:53 100 04/03/23 22:53 98 H 04/03/23 22:48 98 04/03/23 22:48 83 04/03/23 22:43 98 04/03/23 22:43 91 H 04/03/23 22:39 91 H 04/03/23 22:39 136/86 04/03/23 22:38 99 04/03/23 22:38 100 H 04/03/23 22:33 97 04/03/23 22:33 92 H 04/03/23 22:28 97 04/03/23 22:28 92 H 04/03/23 22:23 99 04/03/23 22:23 88 04/03/23 22:23 92 H 04/03/23 22:23 141/81 H 04/03/23 22:18 98 04/03/23 22:18 81 04/03/23 22:13 97 04/03/23 22:13 83 04/03/23 22:08 98 04/03/23 22:08 83 04/03/23 22:08 138/84 04/03/23 22:03 96 04/03/23 22:03 85 04/03/23 21:58 96 04/03/23 21:58 82 04/03/23 21:53 98 04/03/23 21:53 83 04/03/23 21:53 88 04/03/23 21:53 140/84 04/03/23 21:48 96 04/03/23 21:48 83 04/03/23 21:43 97 04/03/23 21:43 81 04/03/23 21:38 98 04/03/23 21:38 86 04/03/23 21:38 143/87 H 04/03/23 21:33 97 04/03/23 21:33 88 04/03/23 21:28 96 04/03/23 21:28 80 04/03/23 21:23 97 04/03/23 21:23 89 04/03/23 21:18 99 04/03/23 21:18 95 H 04/03/23 21:18 85 04/03/23 21:18 140/66 04/03/23 21:15 83 04/03/23 21:15 145/58 H 04/03/23 21:13 96 04/03/23 21:13 84 04/03/23 21:12 86 04/03/23 21:12 147/66 H 04/03/23 21:09 82 04/03/23 21:09 139/69 04/03/23 21:08 97 04/03/23 21:08 84 04/03/23 21:05 86 04/03/23 21:05 140/71 04/03/23 21:03 97 04/03/23 21:03 86 04/03/23 21:02 86 04/03/23 21:02 139/72 04/03/23 21:01 18 04/03/23 21:01 18 04/03/23 21:00 87 04/03/23 21:00 142/66 H 04/03/23 20:58 97 04/03/23 20:58 83 04/03/23 20:57 81 04/03/23 20:57 138/70 04/03/23 20:56 18 04/03/23 20:56 18 04/03/23 20:54 86 04/03/23 20:54 137/66 04/03/23 20:53 97 04/03/23 20:53 84 04/03/23 20:53 18 04/03/23 20:53 37.0 C 18 04/03/23 20:52 91 H 04/03/23 20:52 141/70 H 04/03/23 20:51 18 04/03/23 20:51 18 04/03/23 20:48 97 04/03/23 20:48 80 04/03/23 20:48 87 04/03/23 20:48 133/86 04/03/23 20:45 18 04/03/23 20:45 18 04/03/23 20:45 80 04/03/23 20:45 147/92 H 04/03/23 20:43 98 04/03/23 20:43 78 04/03/23 20:42 81 04/03/23 20:42 140/94 04/03/23 20:38 97 04/03/23 20:38 90 04/03/23 20:33 96 04/03/23 20:33 86 04/03/23 20:28 99 04/03/23 20:28 99 H 04/03/23 20:23 98 04/03/23 20:23 89 04/03/23 20:18 100 04/03/23 20:18 87 04/03/23 19:44 88 04/03/23 19:44 135/83 04/03/23 19:15 87 04/03/23 19:15 140/90 04/03/23 18:20 84 04/03/23 18:20 138/91 O2 Del Method 04/04/23 04:56 Room Air 04/04/23 04:21 04/04/23 04:21 04/04/23 04:07 04/04/23 04:06 04/04/23 03:51 04/04/23 03:37 04/04/23 03:36 04/04/23 03:21 04/04/23 03:06 04/04/23 03:06 04/04/23 02:51 04/04/23 02:51 04/04/23 02:37 04/04/23 02:36 04/04/23 02:21 04/04/23 02:21 04/04/23 02:08 04/04/23 02:07 04/04/23 02:07 04/04/23 02:03 04/04/23 01:58 04/04/23 01:54 04/04/23 01:53 04/04/23 01:48 04/04/23 01:43 04/04/23 01:39 04/04/23 01:38 04/04/23 01:33 04/04/23 01:28 04/04/23 01:23 04/04/23 01:18 04/04/23 01:13 04/04/23 01:10 04/04/23 01:10 04/04/23 01:08 04/04/23 01:08 04/04/23 01:08 04/04/23 01:03 04/04/23 00:58 04/04/23 00:54 04/04/23 00:53 04/04/23 00:48 04/04/23 00:43 04/04/23 00:40 04/04/23 00:38 04/04/23 00:33 04/04/23 00:28 04/04/23 00:24 04/04/23 00:23 04/04/23 00:18 04/04/23 00:13 04/04/23 00:08 04/04/23 00:03 04/03/23 23:58 04/03/23 23:58 04/03/23 23:53 04/03/23 23:53 04/03/23 23:53 04/03/23 23:53 04/03/23 23:48 04/03/23 23:48 04/03/23 23:43 04/03/23 23:43 04/03/23 23:39 04/03/23 23:39 04/03/23 23:38 04/03/23 23:38 04/03/23 23:33 04/03/23 23:33 04/03/23 23:28 04/03/23 23:28 04/03/23 23:23 04/03/23 23:23 04/03/23 23:23 04/03/23 23:18 04/03/23 23:18 04/03/23 23:13 04/03/23 23:13 04/03/23 23:09 04/03/23 23:09 04/03/23 23:08 04/03/23 23:08 04/03/23 23:06 04/03/23 23:06 04/03/23 23:03 04/03/23 23:03 04/03/23 23:00 04/03/23 23:00 04/03/23 22:58 04/03/23 22:58 04/03/23 22:54 04/03/23 22:54 04/03/23 22:53 04/03/23 22:53 04/03/23 22:48 04/03/23 22:48 04/03/23 22:43 04/03/23 22:43 04/03/23 22:39 04/03/23 22:39 04/03/23 22:38 04/03/23 22:38 04/03/23 22:33 04/03/23 22:33 04/03/23 22:28 04/03/23 22:28 04/03/23 22:23 04/03/23 22:23 04/03/23 22:23 04/03/23 22:23 04/03/23 22:18 04/03/23 22:18 04/03/23 22:13 04/03/23 22:13 04/03/23 22:08 04/03/23 22:08 04/03/23 22:08 04/03/23 22:03 04/03/23 22:03 04/03/23 21:58 04/03/23 21:58 04/03/23 21:53 04/03/23 21:53 04/03/23 21:53 04/03/23 21:53 04/03/23 21:48 04/03/23 21:48 04/03/23 21:43 04/03/23 21:43 04/03/23 21:38 04/03/23 21:38 04/03/23 21:38 04/03/23 21:33 04/03/23 21:33 04/03/23 21:28 04/03/23 21:28 04/03/23 21:23 04/03/23 21:23 04/03/23 21:18 04/03/23 21:18 04/03/23 21:18 04/03/23 21:18 04/03/23 21:15 04/03/23 21:15 04/03/23 21:13 04/03/23 21:13 04/03/23 21:12 04/03/23 21:12 04/03/23 21:09 04/03/23 21:09 04/03/23 21:08 04/03/23 21:08 04/03/23 21:05 04/03/23 21:05 04/03/23 21:03 04/03/23 21:03 04/03/23 21:02 04/03/23 21:02 04/03/23 21:01 04/03/23 21:01 04/03/23 21:00 04/03/23 21:00 04/03/23 20:58 04/03/23 20:58 04/03/23 20:57 04/03/23 20:57 04/03/23 20:56 04/03/23 20:56 04/03/23 20:54 04/03/23 20:54 04/03/23 20:53 04/03/23 20:53 04/03/23 20:53 04/03/23 20:53 04/03/23 20:52 04/03/23 20:52 04/03/23 20:51 04/03/23 20:51 04/03/23 20:48 04/03/23 20:48 04/03/23 20:48 04/03/23 20:48 04/03/23 20:45 04/03/23 20:45 04/03/23 20:45 04/03/23 20:45 04/03/23 20:43 04/03/23 20:43 04/03/23 20:42 04/03/23 20:42 04/03/23 20:38 04/03/23 20:38 04/03/23 20:33 04/03/23 20:33 04/03/23 20:28 04/03/23 20:28 04/03/23 20:23 04/03/23 20:23 04/03/23 20:18 04/03/23 20:18 04/03/23 19:44 04/03/23 19:44 04/03/23 19:15 04/03/23 19:15 04/03/23 18:20 04/03/23 18:20
[2023-04-04] MEDS: FERROUS SULFATE 325 MG TAB PO SCH (07:40)
[2023-04-04] MEDS: PRENATAL VITAMIN 1 TAB PO SCH (07:40)
[2023-04-04] MEDS: DOCUSATE SODIUM 100 MG CAP PO SCH (07:40)
[2023-04-04] MEDS: MEASLES, MUMPS & RUBELLA VIRUS VACCINE (MMR) VIAL SQ ONE (15:40)
[2023-04-04] MEDS: ACETAMINOPHEN 325 MG TAB PO PRN (15:59)
[2023-04-04] MEDS: IBUPROFEN 600 MG TAB PO PRN (20:13)
--- NOTE | 2023-04-05 06:10 | Obstetrical Progress Note ---
Date of Service April 05, 2023 Assessment & Plan (1) Encounter for induction of labor: (2) Need for MMR vaccine: (3) Hypertension: Plan 33 y/o female post day 1 Rubella equivocal Hgb reviewed Pain control with Motrin Rubella equivocal- MMR today Ambulation Encourage breast feeding Discharge home today, instructions reviewed Admission and Anticipated Discharge Date Admission Date: April 03, 2023 Supervising Physician Co-Signing Physician Notes Resident Physician Supervision Note: I was present with Dr. Stephan Bhardwaj during the history and exam. I discussed the case with the resident and agree with the findings and plan as documented in the note. Any exceptions or clarifications are listed here: PPD#1 doing well, DC home, instructions reviewed. Documented By: Letitia Cesar, Subjective 33 yo post- day 1 s/p Ambulation: ambulating normally Voiding: no voiding problems Passing Gas: Yes Diet Tolerance: regular diet Lochia:: Small Feeding Type: bottle feeding Current Pain Level: Minimal Resting comfortably this AM in NAD. Denies QIU, CP, SOB, N/V/D, LE pain/swelling. Review of Systems Review of Systems: All systems reviewed & are unremarkable except as noted in HPI & below Physical Exam Physical Exam: General: patient resting comfortably, NAD, non-toxic in appearance, AA&O x 4, answers questions appropriately. Skin: warm, dry, intact HEENT: NC/AT, anicteric sclera, conjunctiva without injection, moist mucus membranes. Heart: +S1/S2, regular, no m/r/g Lungs: equal air entry bilaterally, no rales/rhonchi/wheezes Abd: +BS, soft, NT/ND, uterine fundus firm at umbilicus Ext: warm, no clubbing/cyanosis or edema, Elyse's neg. Neuro: nonfocal, patient AA&O x 4, speech intact, no facial droop, moving all extremities on command. Results & Data Vital Signs (Past 12 Hours) Vital Signs Temp Pulse Resp BP O2 Del Method 04/05/23 00:53 36.4 C L 80 14 128/84 Room Air 04/04/23 20:06 36.5 C 80 137/80 Room Air Resident Activity Tracking Resident Involvement: Resident Care Provided Care Provided: OB Delivery
[2023-04-05] MEDS: BENZOCAINE 20% SPRY 85 APPLN/85 GM CAN EXT PRN (08:33)
[2023-04-05] MEDS ORDERED: bisacodyL 5 MG TABEC PO SCH (20:00)
== END 2023-04-05 13:10 | disposition home or self-care (01) | DRG 807 ==
LOC: 4S1 07:35 → 4E2 04-04 05:05